=== PATIENT | male | born 1970 | race Caucasian/White ===

== ENCOUNTER 2017-04-16 13:48 | Inpatient (IN) | payer OTHER ==
[2017-04-16 14:07] VITALS: BMI 20.9
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
[2017-04-16] MEDS ORDERED: MAG HYDROX/AL HYDROX/SIMETH 30 ML UNIT-DOSE CUP PO PRN (17:40)
[2017-04-16] MEDS ORDERED: guaiFENesin/D-METHORPHAN HB 10 ML UNIT-DOSE CUPS PO PRN (17:40)
[2017-04-16] MEDS ORDERED: IBUPROFEN 400 MG TABLET (FP) PO PRN (17:40)
[2017-04-16] MEDS ORDERED: hydrOXYzine PAMOATE 50 MG CAPSULE (FP) PO PRN (17:40)
[2017-04-16] MEDS ORDERED: ACETAMINOPHEN 325 MG TABLET (FP) PO PRN (17:40)
[2017-04-16] MEDS ORDERED: LOPERAMIDE HCL 2 MG CAPSULE PO PRN (17:40)
[2017-04-16] MEDS ORDERED: MAGNESIUM HYDROX 2400MG/30ML ORAL SUSPENSION 30 ML CUP PO PRN (17:40)
[2017-04-16] MEDS ORDERED: MAGNESIUM CITRATE 300 ML BOTTLE PO PRN (17:40)
[2017-04-16] MEDS ORDERED: P-EPHED 60MG/TRIPROLIDI 2.5MG TABLET PO PRN (17:40)
[2017-04-16] MEDS ORDERED: MENTHOL/PHENOL 1 EACH UD MM PRN (17:40)
[2017-04-16] MEDS ORDERED: METHADONE HCL 10 MG TABLET (FOR DETOX USE ONLY) PO ONE ×2 (18:00→23:00)
[2017-04-16] MEDS ORDERED: diazePAM 5 MG TABLET PO ONE (18:00)
[2017-04-16] MEDS: NICOTINE 14 MG/24 HOURS TOPICAL PATCH TD SCH (18:28)
[2017-04-16] MEDS: NICOTINE POLACRILEX 2 MG GUM BC PRN ×2 (18:39→23:48)
[2017-04-16 21:45] LABS: URINE APPEARANCE SLCLOUDY; URINE BILIRUBIN NEGATIVE (NEGATIVE); URINE BLOOD 1+ (NEGATIVE); URINE COLOR DKYELLOW; URINE GLUCOSE (UA) NEGATIVE (NEGATIVE); URINE KETONE NEGATIVE (NEGATIVE); URINE LEUK ESTERASE TRACE (NEGATIVE); URINE NITRITE NEGATIVE (NEGATIVE)
[2017-04-16 21:50] LABS: URINE PROTEIN 1+ (NEGATIVE)
[2017-04-16] MEDS ORDERED: THIAMINE HCL 100 MG TABLET (FP) PO SCH (22:00)
[2017-04-16] MEDS: diazePAM 5 MG TABLET PO SCH (22:06)
[2017-04-16 22:09] LABS: CALCIUM OXALATE CRYSTALS MODERATE /hpf (NONE SEEN); EPI CELLS RARE /HPF (FEW); URINE BACTERIA FEW /hpf (NONE SEEN); URINE MUCUS MANY
[2017-04-16] MEDS: diazePAM 5 MG TABLET PO PRN (23:52)
[2017-04-17] MEDS: diazePAM 5 MG TABLET PO PRN ×3 (03:29→17:06)
[2017-04-17] MEDS: NICOTINE POLACRILEX 2 MG GUM BC PRN ×3 (03:33→19:57)
[2017-04-17] MEDS: diazePAM 5 MG TABLET PO SCH ×2 (05:24→13:04)
--- NOTE | 2017-04-17 08:58 | EKG ---
Test Reason : Blood Pressure : / mmHG Vent. Rate : 078 BPM Atrial Rate : 078 BPM P-R Int : 116 ms QRS Dur : 092 ms QT Int : 390 ms P-R-T Axes : 027 027 030 degrees QTc Int : 444 ms NORMAL SINUS RHYTHM LOW VOLTAGE QRS BORDERLINE ECG NO PREVIOUS ECGS AVAILABLE Confirmed by Rober Way MD ([id number]) on 04/17/2017 8:58:10 AM Referred By: Confirmed By:Rober Way MD
--- NOTE | 2017-04-17 09:21 | PN ---
[facility] CIWA - CIWA Score Nausea/Vomitin Muscle Tremors: 3 Anxiety: 3 Agitation: 3 Paroxysmal Sweats: 1-Minimal Palms Moist Orientation: 0-Oriented Tacttile Disturbances: 1-Very Mild Itch/Numbness Auditory Disturbances: 1-Very Mild Visual Disturbances: 0-None Headache: 2-Mild CIWA-Ar Total Score: 17 [facility]HS COWS - Scale Resting Pulse: 1= HI 81-100 Sweatin= Chills/Flushing Restless Observation: 3= Extraneous Movement Pupil Size: 1= Pupils >than Normal Bone or Joint Aches: 2= Severe Diffuse Aches Runny Nose/ Eye Tearin= Runny Nose/Eyes GI Upset > 30mins: 2= Nausea/Diarrhea Tremor Observation of Outstretched Hands: 2= Slight Tremor Visible Yawning Observation: 1= 1-2x During Session Anxiety or Irritability: 2=Irritable/Anxious Goose Flesh Skin: 0=Smooth Skin COWS Score: 17 [facility] Progress Note (SOAP) Subjective: ALERT,IRRITABLE.ANXIOUS,INTERRUPTED SLEEP,PAIN IN THE BODY AND BACK,TREMOR Objective: 04/17/17 09:18 Vital Signs Temperature 97.7 F 04/17/17 06:00 Pulse Rate 84 04/17/17 06:00 Respiratory Rate 18 04/17/17 06:00 Blood Pressure 117/70 04/17/17 06:00 O2 Sat by Pulse Oximetry (%) EKG NSR,INCOMPLETE RBBB, PROLONG QT 406 NO CHEST PAIN,NO SOB,NO DIZZINESS 04/17/17 09:20 Laboratory Last Values Urine Color Dkyellow 04/16/17 18:26 Urine Appearance Slcloudy 04/16/17 18:26 Urine pH 6.0 (5.0-8.0) 04/16/17 18:26 Ur Specific [place] 1.018 (1.001-1.035) 04/16/17 18:26 Urine Protein 1+ (NEGATIVE) H 04/16/17 18:26 Urine Glucose (UA) Negative (NEGATIVE) 04/16/17 18:26 Urine Ketones Negative (NEGATIVE) 04/16/17 18:26 Urine Blood 1+ (NEGATIVE) H 04/16/17 18:26 Urine Nitrite Negative (NEGATIVE) 04/16/17 18:26 Urine Bilirubin Negative (NEGATIVE) 04/16/17 18:26 Urine Urobilinogen 2.0 mg/dL (0.2-1.0) 04/16/17 18:26 Ur Leukocyte Esterase Trace (NEGATIVE) 04/16/17 18:26 Urine WBC (Auto) 14 /hpf (3-5) 04/16/17 18:26 Urine RBC (Auto) 17 /hpf (0-3) 04/16/17 18:26 Ur Epithelial Cells Rare /HPF (FEW) 04/16/17 18:26 Calcium Oxalate Crystal Moderate /hpf (NONE SEEN) 04/16/17 18:26 Urine Bacteria Few /hpf (NONE SEEN) 04/16/17 18:26 Urine Mucus Many 04/16/17 18:26 LABS PENDING Assessment: 04/17/17 09:21 WITHDRAWAL SYMPTOM Plan: CONTINUE DETOX,REPEAT UA R/O UTI
[2017-04-17] MEDS ORDERED: CYCLOBENZAPRINE HCL 10 MG TABLET (FP) PO PRN (09:24)
[2017-04-17 09:36] LABS: HEMATOCRIT 42.1 % (35.4-49); HEMOGLOBIN 14.1 GM/dL (11.7-16.9); MCH 30.3 pg (25.7-33.7); MCHC 33.5 g/dl (32.0-35.9); MEAN CELL VOLUME 90.5 fl (80-96); MEAN PLT VOLUME 7.7 fl (7.5-11.1); PLATELET COUNT 278 K/MM3 (134-434); RBC 4.65 M/mm3 (4.00-5.60); RDW 14.6 % (11.9-15.9); WHITE BLOOD COUNT 6.3 K/mm3 (4.0-10.0)
[2017-04-17 09:50] LABS: ALBUMIN 3.1 g/dl (3.4-5.0); ANION GAP 7 (8-16); BILIRUBIN,TOTAL 0.2 mg/dL (0.2-1.0); BLOOD UREA NITROGEN 15 mg/dL (7-18); CALCIUM 8.5 mg/dL (8.5-10.1); CHLORIDE 107 mmol/L (98-107); CO2 28 mmol/L (21-32); CREATININE 0.8 mg/dL (0.7-1.3); GLUCOSE,RANDOM 141 mg/dL (74-106); POTASSIUM 3.8 mmol/L (3.5-5.1); SGOT/AST 26 U/L (15-37); SGPT/ALT 26 U/L (12-78); SODIUM 142 mmol/L (136-145); TOT PROT 8.2 g/dl (6.4-8.2)
[2017-04-17 09:51] LABS: ALK PHOS 85 U/L (45-117)
[2017-04-17] MEDS ORDERED: cloNIDine HCL 0.1 MG TABLET PO SCH (10:00)
[2017-04-17] MEDS ORDERED: PRENATAL VITAMINS W/ FOLIC ACID TABLET (FP) PO SCH (10:00)
[2017-04-17] MEDS ORDERED: METHADONE HCL 10 MG TABLET (FOR DETOX USE ONLY) PO SCH (10:00)
[2017-04-17] MEDS: NICOTINE 14 MG/24 HOURS TOPICAL PATCH TD SCH (10:07)
--- NOTE | 2017-04-17 12:00 | CONSULT ---
[facility] Psychiatric Consult - Data Date of interview: 04/17/17 Admission source: [facility] Identifying data: Pt. is a 47 year old male transitioning to a female. Pt. is unemployed and does not have any children. Pt. requesting to be called Er[facility]. This is patient's first admission to [facility]. Pt. admitted to for heroin dependence. Substance Abuse History: - Smoking Cessation. Smoking history: Current every day smoker. Have you smoked in the past 12 months: Yes. Aproximately how many cigarettes per day: 5. Hx Chewing Tobacco Use: No. Initiated information on smoking cessation: Yes. 'Breaking Loose' booklet given: 04/16/17. - Substance & Tx. History. Hx Alcohol Use: Yes. Hx Substance Use: Yes. Substance Use Type : Alcohol, Heroin, Opiates, Prescribed, Tranquilizers. Hx Substance Use Treatment: Yes (detox in past). - Substances Abused. Heroin. Route: IM. Frequency: Daily. Amount used: $50-100. Age of first use: 29. Date of Last Use: 04/16/17 Medical History: Seizures (possible from klonopin withdrawal), Hep C Psychiatric History: Pt. reports h/o two psychiatric hospitalizations. Most recently hospitalized at [facility] approximately one year ago. Reports a diagnosis of MDD. States she was seeing a psychiatrist last month but will no longer see a psychiatrist until she is accepted to a methadone program. Claims to be prescribed klonopin 2mg daily. Pt. reports two suicide attempts. Eight years ago patient had a suicide attempt after her ( unwilling to elaborate on suicide attempt). In 2017 patient reports overdosing on heroin. Pt currently denies suicidal and homicidal ideation. Physical/Sexual Abuse/Trauma History: Refuse to answer. Mental Status Exam - Mental Status Exam Alert and Oriented to: Time, Place, Person Cognitive Function: Good Patient Appearance: Unkempt Mood: Irritable Affect: Mood Congruent Patient Behavior: Guarded, Agitated Speech Pattern: Appropriate Voice Loudness: Normal Thought Process: Goal Oriented Thought Disorder: Not Present Hallucinations: Denies Suicidal Ideation: Denies Homicidal Ideation: Denies Insight/Judgement: Poor Sleep: Poorly Appetite: Fair Muscle strength/Tone: Normal, Mild Hypertonicity Gait/Station: Other (Pt. ambulates with a wheelchair.) Psychiatric Findings - Problem List ([place] 1, 2,3) (1) Substance induced mood disorder Current Visit: Yes Status: Acute (2) Substance-induced sleep disorder Current Visit: Yes Status: Acute (3) Opioid dependence with withdrawal Current Visit: Yes Status: Acute (4) Benzodiazepine dependence Current Visit: Yes Status: Acute - Initial Treatment Plan Initial Treatment Plan: Psychoeducation provided. Detoxification in progress. Pt. refused all sleep aid options. Observation.
--- NOTE | 2017-04-17 15:28 | PN ---
[facility] Progress Note Note: call to evaluate patient with un witness fall patient wheel himself to nursing station on his own wheelchair stated he fell in the bathroom no witness alert,not in distress lying comfortably in bed stated fell on left side no head injury no neck pain no obvious injury s/p bka left impression history of fall un witness ambulation on wheelchair treatment er evaluation and treatment initiate fall protocol 1 fall precaution close monitoring patient refused treatment ,signed refusal form fall precaution close monitoring
[2017-04-17 17:51] VITALS: BP 112/67; PULSE 78; TEMP 96.8
--- NOTE | 2017-04-17 19:16 | PN ---
[facility] Progress Note Note: Patient requested to leave detox treatment AMA. Patient is a 47 yo male currently in transition to becoming a female. Reports he will like to leave the unit because he is not receiving klonopin, which as per patient is the only thing that works for his blackouts. Patient was seen by psych today and was advise by the nurse that klonopin is not prescribed in this facility. Patient is AOx3, self directing, in no apparent distress, but very belligerent with chart writer. Patient was advised on the unit rules, risk of leaving AMA. Patient was offered to be transported to [facility] for reported episodes of blackouts, patient refuse , and insist that he should receive klonopin. Patient denies suicidal / homicidal ideation. Continue to monitor Continue detox
[2017-04-18] MEDS ORDERED: diazePAM 5 MG TABLET PO SCH (10:00)
[2017-04-18] MEDS ORDERED: METHADONE HCL 5 MG TABLET (FOR DETOX USE ONLY) PO SCH (10:00)
--- NOTE | 2017-04-18 17:13 | EKG ---
Test Reason : Blood Pressure : / mmHG Vent. Rate : 080 BPM Atrial Rate : 080 BPM P-R Int : 124 ms QRS Dur : 094 ms QT Int : 406 ms P-R-T Axes : 040 045 041 degrees QTc Int : 468 ms NORMAL SINUS RHYTHM INCOMPLETE RIGHT BUNDLE BRANCH BLOCK BORDERLINE ECG WHEN COMPARED WITH ECG OF 16-APR-2017 18:41, INCOMPLETE RIGHT BUNDLE BRANCH BLOCK IS NOW PRESENT Confirmed by STEFANIA MCFARLANE, SHANTA ([id number]) on 04/18/2017 5:13:26 PM Referred By: Confirmed By:SHANTA AGUIAR MD
[2017-04-20] MEDS ORDERED: diazePAM 5 MG TABLET PO SCH (10:00)
[2017-04-20] MEDS ORDERED: METHADONE HCL 10 MG TABLET (FOR DETOX USE ONLY) PO SCH (10:00)
[2017-04-21] MEDS ORDERED: METHADONE HCL 5 MG TABLET (FOR DETOX USE ONLY) PO SCH (06:00)
== END 2017-04-17 22:15 | disposition left against medical advice (07) | DRG 770 ==
LOC: YASAS 13:48 → Y6N 17:43
PROVIDERS: ADMIT Internal Medicine; ATTEND Internal Medicine
PROC: HZ2ZZZZ Detoxification Services for Substance Abuse Treatment (ICD-10-PCS; principal; 2017-04-16)
DX: F11.23 Opioid dependence with withdrawal (principal); F13.20 Sedative, hypnotic or anxiolytic dependence, uncomplicated; F19.282 Other psychoactive substance dependence with psychoactive substance-induced sleep disorder; F19.24 Other psychoactive substance dependence with psychoactive substance-induced mood disorder; F33.9 Major depressive disorder, recurrent, unspecified; F41.0 Panic disorder [episodic paroxysmal anxiety]; F41.9 Anxiety disorder, unspecified; B18.2 Chronic viral hepatitis C; Z21 Asymptomatic human immunodeficiency virus [HIV] infection status; Z91.5 Personal history of self-harm; Z89.512 Acquired absence of left leg below knee
CPT/HCPCS: 36415; 80053; 81003; 81015; 85027; 86593; 93005; 93010; J0735